=== PATIENT | female | born 1960 | race Caucasian/White ===

== ENCOUNTER 2020-08-20 16:41 | Emergency (ER) | payer BC, SELFPAY ==
[2020-08-20 16:55] VITALS: BP 147/81; PULSE 86; RESP 18; TEMP 36.7; O2SAT 98
--- NOTE | 2020-08-20 17:08 | ED.ABDPAIN ---
HPI - Abdominal Pain General Chief Complaint: Abdominal Pain Stated Complaint: stomach swelling/hard/painful Time Seen by Provider: 08/20/20 17:00 Source: patient Mode of arrival: ambulatory Limitations: no limitations History of Present Illness HPI narrative: Mandy Oakley is a 60 yo female with a PMH of A. fib, anticoagulation, large pannus with abdominal infection in the past, who comes to [facility] for evaluation of increased abdominal distention. 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 She has had none of the diagnostics or any other doctors visits within the [facility] system so there is no ability to review the labs or diagnostics i that have been performed. Based on this history, she will be referred to the emergency room and discharged Related Data Home Medications Medication Instructions Recorded Confirmed atorvastatin 08/20/20 diltiazem HCl 08/20/20 gabapentin 08/20/20 glipizide mg 08/20/20 hydrochlorothiazide 08/20/20 ibuprofen 08/20/20 levothyroxine 08/20/20 levothyroxine 08/20/20 metformin mg PO 08/20/20 metoprolol succinate PO 08/20/20 mometasone-formoterol [Dulera] INHALATION 08/20/20 montelukast mg 08/20/20 potassium chloride meq PO 08/20/20 prednisone 08/20/20 sertraline mg 08/20/20 warfarin 08/20/20 Allergies Allergy/AdvReac Type Severity Reaction Status Date / Time guaifenesin Allergy Unknown Unknown Unverified 08/20/20 16:45 phenylephrine Allergy Unknown Unknown Unverified 08/20/20 16:45 phenylpropanolamine Allergy Unknown Unknown Unverified 08/20/20 16:45 Review of Systems Review of Systems: Narrative: CONSTITUTIONAL: Denies fever, chills, sweats. EYES: Denies visual changes, redness, discharge. ENT: Denies rhinorrhea, congestion, sore throat, otalgia. CARDIOVASCULAR: Denies chest pain, palpitations, edema. RESPIRATORY: Denies dyspnea, wheezing, cough GASTROINTESTINAL: Denies abdominal pain, nausea, vomiting, diarrhea. Swelling and induration of abdomen GENITOURINARY: Denies dysuria, hematuria, abnormal discharge SKIN: Denies rash or itching. NEUROLOGIC: Denies numbness, or focal weakness. PSYCHIATRIC: Denies anxiety or depression. PMFSH Past Medical History Medical History (Updated 08/20/20 @ 17:38 by Stella Sanders CNP) A-fib Abdominal infection Asthma Chronic anticoagulation Chronic pain Diabetes Liver cirrhosis Peripheral neuropathy Sarcoidosis Social History Social History Smoking status: Never smoker Living arrangements: alone Comments At time of signature, I agree with nursing past medical, surgical, social and family history. There is no relevant family history pertinent to the presenting complaint. Exam Narrative: Exam Narrative: GENERAL: This is a well-nourished, well-developed patient, in mild distress. HEAD: normocephalic, atraumatic. EYES: Sclera clear/white. Vision is grossly intact. EARS: External ears normal, . Hearing grossly intact. NOSE: External nose normal without nasal discharge, nares without redness, no rhinorrhea. THROAT: Mucous membranes moist, NECK: Neck supple, CARDIOVASCULAR: Regular rate and rhythm without murmurs, gallops, or rubs. RESPIRATORY: Clear to auscultation. Breath sounds equal bilaterally. No wheezes, rales, or rhonchi. GASTROINTESTINAL: Abdomen hard on palpation, nontender, non discolored, SKIN: warm, intact with no suspicious lesions or rash, good texture and turgor. NEURO: awake, alert, and oriented to person, place and time. There were no obvious focal neurologic abnormalities. Steady gait EXTREMITIES: Normal range of motion. No abnormal swelling or unilateral swelling noted BACK: Nontender without deformity Course Vital Signs Vital signs: Vital Signs Temperature 98.1 F 08/20/20 16:55 Pulse Rate 86 08/20/20 16:55 Respiratory Rate 18 08/20/20 16:55 Blood Pressure 147/81 H
== END 2020-08-20 17:25 | disposition short-term general hospital (02) ==
PROVIDERS: Emergency Provider Nurse Practitioner; PCP Family Medicine
DX: R14.0 Abdominal distension (gaseous) (principal); K74.60 Unspecified cirrhosis of liver; I48.91 Unspecified atrial fibrillation; Z79.01 Long term (current) use of anticoagulants; E11.42 Type 2 diabetes mellitus with diabetic polyneuropathy; J45.909 Unspecified asthma, uncomplicated
CPT/HCPCS: 99203; G0463